=== PATIENT | female | born 1975 | race Two or more races ===

== ENCOUNTER 2019-01-06 10:35 | Outpatient (CLI) | payer OTHER ==
[~2019-01-06] VITALS: Ht 152.4 cm; Wt 68.0 kg
== END 2019-01-06 12:37 | disposition home or self-care (01) ==
LOC: OFIC 805 10:35
DX: J34.2 Deviated nasal septum (principal); R04.0 Epistaxis; R42 Dizziness and giddiness; J31.2 Chronic pharyngitis